=== PATIENT | female | born 1975 | race Caucasian/White ===

== ENCOUNTER 2017-05-19 13:14 | Emergency (ER) | payer OTHER, MEDICAID, SELFPAY ==
[2017-05-19 13:14] VITALS: BP 107/75; PULSE 94; RESP 18; TEMP 37.3; O2SAT 98; BMI 18.6
--- NOTE | 2017-05-19 14:09 | CT_ITS ---
STUDY: CT ABDOMEN AND PELVIS WITH CONTRAST REASON FOR EXAM: Female, 41 years old. Lower abdomen pain, swelling near incision site, 04/02/2018. On blood thinners for hx PE.. RADIATION DOSAGE (If Supplied By Facility): CTDIvol = ( 7.00 ) mGy, DLP = ( 335.67 ) mGycm TECHNIQUE: Transaxial images were obtained from the dome of the diaphragm to the symphysis pubis without oral contrast. 100mL ml of Isovue 300 contrast was administered. Sagittal and coronal images were reconstructed. Individualized dose optimization techniques were used for this CT. COMPARISON: April 21, 2017 FINDINGS: The visualized lung bases are unremarkable. The visualized portions of the heart are within normal limits. Normal liver. Normal gallbladder and extrahepatic biliary system. Normal spleen. Normal pancreas. Normal bilateral adrenal glands. Normal right kidney. Normal left kidney. Normal visualized stomach. Normal small intestine. Normal colon. The appendix is visualized and appears normal. There is diffuse atherosclerotic calcification of the abdominal aorta, without a demonstrated aneurysm. Normal inferior vena cava. Normal retroperitoneum. Normal urinary bladder. Again noted is anterior lower abdominal wall collection which measures 10.3 x 6.7 x 8 cm. Previously it measured 12.6 x 11.2 x 7.2 cm. Normal osseous structures. CT/Abdomen/Pelvis W IV Cont ONLY IMPRESSION: Persistent large anterior abdominal wall collection. No acute intra-abdominal or intrapelvic abnormality. Electronically Signed: Aj Adler MD at 15:29 EST Tel , Service support ,
[2017-05-19] MEDS: 0.9% Normal Saline 1,000 ML 1000 ML IV (14:19)
[2017-05-19] MEDS: Ondansetron 4 MG/2 ML Vial IV (14:20)
[2017-05-19 14:28] LABS: Absolute Lymphocyte Count 1.55 X10^3/ul (0.83-4.51); Absolute Neutrophil Count 5.7 X10^3/uL (2.0-7.7); Basophil# 0.02 X10^3/uL; Basophil% 0.3 % (0-1); Eosinophil# 0.05 X10^3/uL; Eosinophils% 0.6 % (0-5); Hematocrit 33.2 % (37-47); Hemoglobin 10.4 g/dl (12.0-15.0); Lymphocyte # 1.55 X10^3/ul (4.0); Lymphocyte % 19.7 % (19-41); Mean Corp Hgb Conc 31.3 g/gl (32-36); Mean Corpuscular Hgb 28.3 pg (27.0-32.0); Mean Corpuscular Volume 90.5 fL (81-99); Mean Platelet Vol. 9.5 fl (6.2-12.0); Monocyte% 6.4 % (0-10); Neutrophil # 5.73 X10^3/uL (2.7-7.7); Neutrophil % 72.9 % (47-70); POSITIVE COUNT NO; POSITIVE DIFFERENTIAL NO; POSITIVE MORPHOLOGY NO; Platelet Count 319 K/mm3 (150-450); RBC Distribution Width CV 14.2 % (11.6-14.6); RBC Distribution Width SD 45.7 fl (35.1-43.9); Red Blood Count 3.67 M/mm3 (4.2-5.4); White Blood Count 7.9 K/mm3 (4.4-11.0)
[2017-05-19 14:34] LABS: International Normalized Ratio 1.1; Prothrombin Time (Protime)PT. 13.8 SECONDS (11.7-14.9)
[2017-05-19 14:39] LABS: Anion Gap 9 (5-15); BUN 7 mg/dL (7-18); BUN/Creat Ratio 11.3 RATIO (10-20); Calcium,Total 8.8 mg/dL (8.5-10.1); Chloride 107 mmol/L (98-107); Creatinine, Serum 0.62 mg/dL (0.55-1.02); EST Glomerular Filtration Rate 112 mL/min (>60); Est Glom Filt Rate - Afr Amer 136 mL/min (>60); Estimated Creatinine Clearance 98.97 ml/min; Glucose 89 mg/dL (74-106); Potassium 3.8 mmol/L (3.5-5.1); Sodium Level 140 mmol/L (136-145)
[2017-05-19 15:00] VITALS: TEMP 37
--- NOTE | 2017-05-19 16:01 | ED.VISSUMM ---
- ER Visit Summary Date of Service: 05/19/17 Chief Complaint: Hematoma/swelling/pain History of Present Illness: The patient is a 41 F who presents with swelling and pain in her lower abdomen. She had a on 04/02/2018. She was on warfarin due to history of DVT and pulmonary embolism. She developed a postoperative hematoma. She was admitted and observed. This remained stable. She did not have any surgical intervention or drainage. She complains of ongoing pain and swelling since that time. She actually has an appointment tomorrow. She denies fevers nausea or vomiting. She states she feels like the swelling is getting bigger. Physical Examination: Temperature 99.1 heart rate 94 vitals otherwise normal Moist mucous membranes Heart regular rate and rhythm Lungs are clear Abdomen soft she does have some induration and erythema of the lower abdomen. Incision itself appears well scarred and intact without drainage I do not appreciate fluctuance Test Results: CBC shows hemoglobin 10.4 no leukocytosis. BMP normal. INR normal. CT of the abdomen and pelvis shows a persistent large anterior abdominal wall collection which is decreased in total volume. Emergency Department Course and Treatment: Patient does have some mild overlying erythema and warmth. I am concerned for the possibility of infected hematoma. I spoke to the physician covering, Dr. 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 Initially we discussed oral antibiotics and keeping scheduled follow-up tomorrow. I did discuss this plan with the family. I was called back and advised to hold on antibiotics until the patient be seen in the office tomorrow. However the patient and family were uncomfortable and still wanted to try oral antibiotics and I do believe this is reasonable. Was given a short prescription for [place] for pain control. Ultimately after a long discussion patient and family were agreeable to this plan. All questions were answered at the bedside. Patient and family were instructed on signs and symptoms to monitor for, conditions under which return to the emergency department. Treatment Plan: [] Disposition: Discharge Impression: Hematoma, possible infected Cellulitis This note was generated with [employer] dictation software. It may contain incorrect words, spelling, and punctuation that were not noted in review of the chart prior to signing ED Disposition - Plan for ED Patient: Chief Complaint: Wound Referrals: Dominik Dangelo III, MD [Primary Care Provider] -
--- NOTE | 2017-05-19 16:13 | ED.DCSUM_ITS ---
- ER Visit Summary Date of Service: 05/19/17 Chief Complaint: Hematoma/swelling/pain History of Present Illness: The patient is a 41 F who presents with swelling and pain in her lower abdomen. She had a on 04/02/2018. She was on warfarin due to history of DVT and pulmonary embolism. She developed a postoperative hematoma. She was admitted and observed. This remained stable. She did not have any surgical intervention or drainage. She complains of ongoing pain and swelling since that time. She actually has an appointment tomorrow. She denies fevers nausea or vomiting. She states she feels like the swelling is getting bigger. Physical Examination: Temperature 99.1 heart rate 94 vitals otherwise normal Moist mucous membranes Heart regular rate and rhythm Lungs are clear Abdomen soft she does have some induration and erythema of the lower abdomen. Incision itself appears well scarred and intact without drainage I do not appreciate fluctuance Test Results: CBC shows hemoglobin 10.4 no leukocytosis. BMP normal. INR normal. CT of the abdomen and pelvis shows a persistent large anterior abdominal wall collection which is decreased in total volume. Emergency Department Course and Treatment: Patient does have some mild overlying erythema and warmth. I am concerned for the possibility of infected hematoma. 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 Initially we discussed oral antibiotics and keeping scheduled follow-up tomorrow. I did discuss this plan with the family. I was called back and advised to hold on antibiotics until the patient be seen in the office tomorrow. However the patient and family were uncomfortable and still wanted to try oral antibiotics and I do believe this is reasonable. Was given a short prescription for [facility] for pain control. Ultimately after a long discussion patient and family were agreeable to this plan. All questions were answered at the bedside. Patient and family were instructed on signs and symptoms to monitor for, conditions under which return to the emergency department. Treatment Plan: [] Disposition: Discharge Impression: Hematoma, possible infected Cellulitis This note was generated with [employer] dictation software. It may contain incorrect words, spelling, and punctuation that were not noted in review of the chart prior to signing ED Disposition - Plan for ED Patient: Chief Complaint: Wound Referrals: Dominik Dangelo III, MD [Primary Care Provider] -
--- NOTE | 2017-05-19 16:13 | ED.DEP ---
ED Disposition - Plan for ED Patient: Chief Complaint: Wound Instructions: ED Hematoma, ED Infec Skin Cellulitis Prescriptions: Clindamycin HCl [Cleocin] 300 mg PO Q8H #30 cap Referrals: Dominik Dangelo III, MD [Primary Care Provider] - Sommer Machuca MD [STAFF PHYSICIAN] -
[2017-05-19 16:22] VITALS: BP 101/60; PULSE 73; RESP 16; O2SAT 98
== END 2017-05-19 16:29 | disposition home or self-care (01) ==
LOC: ED 14:22
PROVIDERS: Emergency Provider Emergency Medicine; Family Provider Family Medicine; PCP Family Medicine
DX: O90.2 Hematoma of obstetric wound (principal); Z86.711 Personal history of pulmonary embolism
CPT/HCPCS: 74177; 80048; 85025; 85610; 96361; 96374; 96375; 99283; J7030; Q9967; A4216; J2405

== ENCOUNTER → 2017-05-22 07:59 | Outpatient (CLI) | payer OTHER, MEDICAID, SELFPAY ==
--- NOTE | 2017-05-22 08:04 | CT_ITS ---
PROCEDURE: CT DIRECTED ABSCESS DRAINAGE, PERITONEAL DATE OF EXAMINATION: May 22, 2017. INDICATION: Female, 41 years old. Fluid collection in the pelvis most likely representing a postoperative hematoma. PHYSICIAN: Dakota Danielle M.D. CONSENT: Written informed consent was obtained having explained the risks, benefits and alternatives in detail with the patient who accepted the risks and agreed to proceed. Laboratory review and clinical assessment was performed. CONSCIOUS SEDATION PROTOCOL: The Drugs used were: 2 mg Versed, IV., and 50 mcg Fentanyl, IV. The sedation time was: 20 minutes. Conscious sedation was started at 8:55 AM and terminated at 9:15 AM. The conscious sedation protocol was independently monitored by the department nurse. RADIATION DOSAGE (If Supplied By Facility): CTDIvol = ( 19.5 ) mGy, DLP = ( 647.71 ) mGycm. Individualized dose reduction techniques were utilized. TECHNIQUE: CT sections were made through the abdomen and pelvis revealing an abscess in the pelvis. The skin surface was prepped and draped in a sterile fashion. Puncture of this collection was performed initially with a 5 [place] catheter and fluid was aspirated. Drainage catheter was then inserted into the collection and formed into position. Additional fluid was aspirated for a total of approximately 10 cc of cloudy red fluid. The catheter was sutured into position to allow for continued drainage. Followup CT sections reveals good position of the catheter. A followup CT examination was ordered within 48 hours.It could be done as indicated however. CT/Abscess/Fistula/Sinus Tract IMPRESSION: 1. CT directed drainage of a fluid collection using CT image guidance and image documentation as described. 2. Conscious Sedation protocol utilized with independent monitoring Electronically Signed: Dakota Danielle MD at 10:17 EST Tel [phone], Service support ,
[2017-05-22 08:16] VITALS: BP 90/55; PULSE 74; RESP 16; TEMP 36.4; O2SAT 98; BMI 19.0
[2017-05-22 11:04] VITALS: BP 96/64; PULSE 84; RESP 16; O2SAT 98
== END ==
PROVIDERS: Family Provider Family Medicine; PCP Family Medicine; Visit Provider Obstetrics & Gynecology
DX: M79.81 Nontraumatic hematoma of soft tissue (principal); R10.9 Unspecified abdominal pain
CPT/HCPCS: 20501; 77012; 87070; 87075; 87077; 87205; 99156; 99157; J7040; A4216

== ENCOUNTER 2020-06-02 08:38 | Day surgery (SDC) | payer MEDICAID, SELFPAY ==
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
[2020-06-02] VITALS (7 sets, daily range): BP systolic 105–118; BP diastolic 71–81; PULSE 70–83; RESP 14–16; TEMP 36.4–37.4; O2SAT 95–100; BMI 19.0
[2020-06-02 09:05] LABS: Internal QC Validated? YES +Cl - CLEAR BKGD; Pregnancy, Urine Negative Negative
[2020-06-02] MEDS: Lactated Ringers 1,000 ML 100 ML IV (09:14)
[2020-06-02 10:12] LABS: Hemoglobin 12.5 g/dL (12.0-15.0); Mean Corp Hgb Conc 32.9 g/dL (32-36); Mean Corpuscular Hgb 30.1 pg (27.0-32.0); Mean Corpuscular Volume 91.6 fL (81-99); Platelet Count 170 K/mm3 (150-450); Red Blood Count 4.15 M/mm3 (4.2-5.4); White Blood Count 5.5 K/mm3 (4.4-11.0)
--- NOTE | 2020-06-02 10:40 | EMB_PTH ---
PATIENT: DELFINA KIRBY [place] [facility] [id number] AGE/SX: 44/F ROOM: RE06/02/[address]: Dr. Nora Acosta DO : 1975 BED: DIS: 06/02/2020 SPEC #: [id number] RECD: 06/02/20 11:49 STATUS: MEJIA RECristina #: [id number] AMY: 06/02/20 10:[address]: Nora Acosta DEPT: SURGICAL PATHOLOGY RECD BY: Pamela Melissa ENTERED: 06/02/20 12:30 SP TYPE: ENDOM BX/C CHACE DR: Dr. Dominik Dangelo III, MD Tissues: Endometrium, NOS Procedures: Surgery Specimen Level IV HEADER OPERATION: Hysteroscopy, D & C Symphion, polypectomy PRE-OP DIAGNOSIS: Menorrhagia TISSUE SUBMITTED: Endometrial curettings MICROSCOPIC DIAGNOSIS Endometrial curettings: Secretory endometrium. SJ:mike 06/03/2020 MICROSCOPIC DESCRIPTION Slides are reviewed. GROSS DESCRIPTION Received in fixative is one container labeled with the patient's name and designated endometrial curettings. The specimen consists of multiple irregular fragments of monaco-pink soft tissue that in aggregate measure 5 x 3 x 0.3 cm. The entire specimen is submitted in two cassettes. / SJ:mike 06/02/20 TC:4 CPT: 25351
[2020-06-02] MEDS: Lidocaine 1% (20 ml mdv) 20 ML Vial (10:47)
--- NOTE | 2020-06-02 11:08 | PCM.DC.D&C ---
Discharge Diet: No Restrictions Discharge Activity: May Drive - to wait 24 hours after surgery, May Shower May resume sexual activity in: 1 week - no tampons, intercourse, hot tubs, tub baths Weight Bearing Status: Weight bearing as tolerated Lifting Restrictions: None Call your doctor if you observe: Fever of 101 or Higher, Numbness or Tingling, Inability to urinate, Inability to have a bowel movement, Using more than one pad per hour, Shortness of breath, Dizziness, Fainting spells, Swelling in the ankles, Chest pain, Increased palpitations (irregular heartbeat), Calf discomfort, Uncontrolled pain Allergies/Adverse Reactions: Allergies clindamycin Allergy (Verified 06/02/20 08:54) Rash Sulfa (Sulfonamide Antibiotics) Allergy (Verified 06/02/20 08:54) Unknown warfarin Allergy (Verified 06/02/20 08:54) Rash band aids Allergy (Uncoded 06/02/20 08:54) Rash Medications to take at Discharge Levothyroxine [Synthroid] 100 mcg PO DAILY 02/07/15 Ascorbic Acid/Elderberry Fruit [Elderberry-Vit C 50-100 mg Chw] 1 tablet PO DAILY 05/26/20 B-Complex with Vitamin C [Super B Complex-Vitamin C] 1 tablet PO DAILY 05/26/20 Cranberry/B.coagulan/C/Calcium [Cranberry-Probiotic Tablet] 1 tab PO DAILY 05/26/20 Duloxetine Hcl [Cymbalta] 30 mg PO DAILY 05/26/20 Multivit/Iron/Folic Acid/Hb179 [Womens Multivit Hi Potency Tab] 1 ea PO DAILY 05/26/20 Vitamin A 8,000 unit PO DAILY 05/26/20 Orders to be completed after discharge: Type & Screen - PAT ONLY Time Frame: 06/02/20, Facility: [facility], Location: Laboratory Primary Care Physician: Dominik Dangelo III, MD [Primary Care Provider] - Test Results: Test results from this visit will be discussed in further detail at your follow-up appointment, if applicable. Please Follow Up With: Nora Acosta DO When: 1 week
--- NOTE | 2020-06-02 11:40 | PCM.OPRPT ---
Problem List (1) Menorrhagia Status: Acute Report of Operation Date of Procedure: 06/02/20 Pre-Operative Diagnosis: Menorrhagia, polyp on pelvic US Post-Operative Diagnosis: Menorrhagia Surgery/Procedure Performed:: Hysteroscopy D&C Description of Surgical Findings:: Uterine cavity and bilateral tubal ostia were visualized. No fibroids or polyps noted within the uterus or in the cervix. Normal appearing uterine cavity. Type of Anesthesia:: MAC Special Medications: None Specimen's removed: Endometrial curettings Drains: None Estimated Blood Loss (mL): < 50 cc Fluids Replaced: Deficit 350 cc Description of Procedure: The patient was taken to the operating room where MAC anesthesia was found to be adequate. She was prepped and draped in the dorsal lithotomy position using yellowfin stirrups. A weighted speculum was placed in the vagina to expose the cervix. The anterior lip of the cervix was grasped with a single-tooth tenaculum. The cervix was serially dilated to accommodate the hysteroscope. The hysteroscope was advanced to the fundus of the uterus and the uterus was distended using normal saline as distention media. The uterine cavity was normal-appearing and bilateral tubal ostia were visualized. There were no polyps or fibroids noted. Hysteroscope was slowly removed through the cervical canal and no polyps were noted in the cervix. Hysteroscope was then removed. Sharp curettage was performed for moderate amount of tissue. Endometrial curettings were sent to pathology for review. All instruments were removed from the vagina. Hemostasis was noted. Instrument and sponge counts were correct. Vaginal sweep was performed. Patient was taken to recovery in stable condition. Grafts/Implants Used: None - Complications None - Admit VTE Documentation VTE Present on Admission: No VTE Mechan Device Prophylaxis: SCD's VTE Pharm Prophylaxis ordered?: No
== END 2020-06-02 12:34 | disposition home or self-care (01) ==
LOC: SDC 08:39 → AC 08:39
PROVIDERS: Anesthesiology; PCP Family Medicine; Referring Provider Obstetrics & Gynecology; Visit Provider Obstetrics & Gynecology
PROC: 0UB98ZZ Excision of Uterus, Via Natural or Artificial Opening Endoscopic (ICD-10-PCS; CPT 58558; principal; 2020-06-02 10:25)
DX: N92.0 Excessive and frequent menstruation with regular cycle (principal); F31.9 Bipolar disorder, unspecified; D50.9 Iron deficiency anemia, unspecified; E03.9 Hypothyroidism, unspecified; Z86.711 Personal history of pulmonary embolism; Z86.718 Personal history of other venous thrombosis and embolism; Z87.891 Personal history of nicotine dependence; Z79.899 Other long term (current) drug therapy; Z20.822 Contact with and (suspected) exposure to COVID-19
CPT/HCPCS: 58558; 81025; 85027; 86850; 86900; 86901; 87426; 88305; C9803; J7120; J2405

== ENCOUNTER → 2022-12-25 | Outpatient (CLI) | payer MEDICAID, SELFPAY ==
--- NOTE | 2022-12-24 | ASPSI_PTH ---
PATIENT: DELFINA KIRBY LOC: [facility] U#:[id number] AGE/SX: 47/F ROOM: RE12/25/[address]: Dr. Sindy Tejeda MD : 1975 BED: DIS: 12/25/2022 SPEC #: [id number] RECD: 12/25/22 12:00 STATUS: MEJIA RECristina #: [id number] AMY: 12/24/22 00:[address]: Sindy Tejeda DEPT: CYTOLOGY RECD BY: Radha Talamantes ENTERED: 12/25/22 13:03 SP TYPE: ASP MINGO MAS DR: Dr. John Phelan MD Tissues: A - Axilla, NOS B - Axilla, NOS Procedures: Surgery Specimen Level IV Cytospin Fluid Cytology Other HEADER OPERATION: Fine needle aspiration of left axilla PRE-OP DIAGNOSIS: Mass of left axilla TISSUE SUBMITTED: A - Left axilla fluid, B - Left axilla x8 slides DIAGNOSIS CYTOLOGY A. Left axilla fluid, fine needle aspiration (cytospin and cell block): Negative for malignant cells. See comment. B. Left axilla, fine needle aspiration (smears): Negative for malignant cells. See comment. SJ:rg 12/26/2022 COMMENT A. The specimen is paucicellular and consists of rare cluster of benign epithelial cells. B. The specimen consists of clusters of benign epithelial cells, macrophages and fragments of benign adipose tissue. Malignant cells are not identified. If the FNA site is close to the breast, findings may represent benign fibrocystic changes. Correlation with clinical, radiologic findings and appropriate follow up are necessary. Case has been reviewed in consultation with Dr. Ash who concurs with the above diagnosis. IDC:AM CYTOLOGY STUDY Slides are reviewed. CYTOLOGY GROSS A - Received is 35 ml of hazy colorless fluid labeled with the patient's name and and designated per the requisition as left axilla. Submitted for cytology preparation including cell block. B - Received are eight smears labeled with the patient's name and designated per the requisition as left axilla. Submitted for staining. / mike 12/25/2022 TC:5 CPT: 70030, 00935 x2
== END | disposition home or self-care (01) ==
LOC: LABSPEC 12:10
PROVIDERS: PCP Family Medicine; Referring Provider Surgery; Visit Provider Surgery
DX: R22.9 Localized swelling, mass and lump, unspecified (principal)
CPT/HCPCS: 88108; 88161; 88305